=== PATIENT | male | born 1995 | race Caucasian/White ===

== ENCOUNTER 2022-09-09 20:51 | Emergency (ER) | payer OTHER ==
[~2022-09-09] VITALS: Ht 180.3 cm; Wt 77.1 kg
[2022-09-09 21:12] VITALS: BP 123/101
--- NOTE | 2022-09-09 21:26 | NUR ---
AMBULATED TO BED 5 WITH STEADY GAIT
[2022-09-09 21:27] VITALS: BP 123/101
--- NOTE | 2022-09-09 21:58 | NUR ---
Patient discharged with v/s stable. Written and verbal after care instructions given and explained. Patient verbalized understanding. Ambulatory with steady gait. All questions addressed prior to discharge. Advised to follow up with PMD.
== END 2022-09-09 21:58 | disposition home or self-care (01) ==
LOC: MED 20:51
DX: M79.89 Other specified soft tissue disorders (principal)
CPT/HCPCS: 99281